=== PATIENT | male | born 1985 | race Caucasian/White ===

== ENCOUNTER 2019-08-02 05:26 | Emergency (ER) | payer OTHER, BC ==
[~2019-08-02] VITALS: Ht 177.8 cm; Wt 97.5 kg
[2019-08-02 05:41] VITALS: Ht 177.8 cm; Wt 97.5 kg
[2019-08-02 06:15] VITALS: BP 120/81
== END 2019-08-02 06:15 | disposition home or self-care (01) ==
LOC: ED 05:26
DX: S16.1XXA Strain of muscle, fascia and tendon at neck level, initial encounter (principal); S39.012A Strain of muscle, fascia and tendon of lower back, initial encounter; S80.12XA Contusion of left lower leg, initial encounter; V43.02XA Car driver injured in collision with other type car in nontraffic accident, initial encounter; Y93.I9 Activity, other involving external motion; Y92.413 State road as the place of occurrence of the external cause; Y99.8 Other external cause status